=== PATIENT | male | born 1940 | race Caucasian/White ===

== ENCOUNTER 2024-01-03 06:56 | Day surgery (SDC) | payer MEDICARE, BC ==
[2024-01-02 11:35] LABS: BASOPHILS % (AUTO) 0.4 % (0-1); EOSINOPHILS # (AUTO) 0.1 X10'3 (0-0.9); EOSINOPHILS % (AUTO) 1.2 % (0-6); HEMATOCRIT 46.7 % (42.0-52.0); HEMOGLOBIN 15.8 g/dl (14.0-17.9); LYMPHOCYTES # (AUTO) 1.2 X10'3 (1.1-4.8); MEAN CORPUSCULAR HEMOGLOBIN 31.9 PG (27.0-31.0); MEAN CORPUSCULAR HGB CONC 33.8 g/dL (33.0-36.5); MEAN CORPUSCULAR VOLUME 94.5 FL (78-98); MEAN PLATELET VOLUME 7.6 FL (7.4-10.4); MONOCYTES # (AUTO) 1.2 X10'3 (0-0.9); NEUTROPHILS # (AUTO) 6.8 X10'3 (1.8-7.7); NEUTROPHILS % (AUTO) 72.4 % (42-75); PLATELET COUNT 257 X10'3 (140-440); RED BLOOD COUNT 4.94 X10'6 (4.70-6.10); RED CELL DISTRIBUTION WIDTH 13.4 % (11.5-14.5); WHITE BLOOD COUNT 9.4 X10'3 (4.5-11.0)
[2024-01-02 11:42] LABS: APTT 28 SECONDS (22-32); PROTHROMBIN TIME 10.4 SECONDS (9.0-12.0)
[2024-01-02 11:44] LABS: ALBUMIN 3.7 G/DL (3.4-5.0); ANION GAP 10 (8-16); BLOOD UREA NITROGEN 28 MG/DL (7-18); BUN/CREATININE RATIO 22.6 (10.0-20.0); CALCIUM 9.1 MG/DL (8.5-10.1); CHLORIDE 96 MMOL/L (99-107); CREATININE 1.24 MG/DL (0.60-1.10); GLUCOSE 90 MG/DL (70-104); POTASSIUM 4.3 MMOL/L (3.5-5.1); SODIUM 134 MMOL/L (135-145); TOTAL CARBON DIOXIDE 27.8 MMOL/L (24-32); eGFR 56 ML/MIN
[~2024-01-03] VITALS: Ht 190.5 cm; Wt 115.7 kg
[2024-01-03] VITALS (11 sets, daily range): BP systolic 100–140; BP diastolic 40–74; PULSE 48–71; RESP 12–18; TEMP 97.9; O2SAT 93–99
[~2024-01-03 06:56] MED LIST: ASPI81TA52 PO; ATOR10TA70 PO; CLOP75TA34 PO; CLOP75TA4 PO; FOLI1TAB27 PO; METH2.5T55 PO; METO-395 PO
[2024-01-03] MEDS ORDERED: CELE-127 PO (07:21)
[2024-01-03] MEDS ORDERED: OLME1TAB50 PO (07:21)
[2024-01-03] MEDS ORDERED: ROSU40TA22 PO (07:21)
[2024-01-03] MEDS ORDERED: LIDOcaine 1% (10mg/ml) 2ml vial ONE (08:18)
[2024-01-03] MEDS ORDERED: verapamil 2.5 mg/ml inj IV ONE (08:19)
[2024-01-03] MEDS ORDERED: fentaNYL/PF 50MCG/1 ML 2ML syringe ONE (08:19)
[2024-01-03] MEDS ORDERED: midazolam 1 mg/ML 2ml injection ONE (08:19)
[2024-01-03] MEDS ORDERED: iohexol 350 MG/ML 50ML vial IV ONE (08:20)
[2024-01-03] MEDS ORDERED: nitroGLYCERIN 500mcg/5mL D5W 5 ML IV ONE (08:20)
[2024-01-03] MEDS ORDERED: iohexol 350MG/ML 100ml bottle IV ONE (08:20)
[2024-01-03] MEDS ORDERED: heparin 1,000unit/ml 10ml vial 10 ML ONE (08:20)
[2024-01-03] MEDS: acetylcysteine 200 MG/ml 4ml vial PO PRN (08:24)
[2024-01-03] MEDS: LORazepam 0.5 MG tablet PO PRN (08:24)
[2024-01-03] MEDS: sodium bicarbonate 1meq/ml syr 150 ML in dextrose 5%-water 1,000 ML IV SCH (08:24)
[2024-01-03] MEDS: diphenhydrAMINE 25mg capsule PO PRN (08:24)
[2024-01-03] MEDS: normal saline 1,000 ML IV SCH (08:25)
[2024-01-03] MEDS ORDERED: LIDOcaine 1% 30ml preserv. free vial ONE (10:01)
[2024-01-03 13:30] LABS: ISTAT HGB ART 14.6 g/dl (14.0-17.9); ISTAT Hct ART 43 %PCV (42-52); ISTAT O2 SATURATION ARTERIAL 95 % (95-98); ISTAT SOURCE ART
[2024-01-03 17:07] LABS: ISTAT HGB MIX 14.6 g/dl (14.0-17.9); ISTAT Hct MIX 43 %PCV (42-52); ISTAT O2 SATURATION MIX VENOUS 70 % (60-80); ISTAT SOURCE VEN
== END 2024-01-03 15:10 | disposition home or self-care (01) ==
LOC: SSTAY O 06:56
PROVIDERS: ATTEND Internal Medicine Cardiovascular Disease
DX: I35.0 Nonrheumatic aortic (valve) stenosis (principal); I25.10 Atherosclerotic heart disease of native coronary artery without angina pectoris; I45.2 Bifascicular block; I10 Essential (primary) hypertension; E78.5 Hyperlipidemia, unspecified; G47.30 Sleep apnea, unspecified; E66.3 Overweight; M06.9 Rheumatoid arthritis, unspecified; Z79.82 Long term (current) use of aspirin; Z79.899 Other long term (current) drug therapy; Z98.890 Other specified postprocedural states; Z68.31 Body mass index [BMI] 31.0-31.9, adult; Z80.9 Family history of malignant neoplasm, unspecified
CPT/HCPCS: 36415; 80048; 82803; 85014; 85025; 85610; 85730; 93005; 93460; 99152; 99153; J1644; J2250; J3010; J3490; J7030; J7070; Q0163; Q9967; 76937; A6258; A6402; C1725; C1751; C1769; C1894

== ENCOUNTER 2024-06-03 09:35 | Outpatient (CLI) | payer MEDICARE, BC ==
[~2024-06-03 09:35] MED LIST changes: -ATOR10TA70 PO; +CELE-127 PO; -CLOP75TA34 PO; -FOLI1TAB27 PO; -METH2.5T55 PO; -METO-395 PO; +OLME1TAB50 PO; +ROSU40TA71 PO
[2024-06-03 10:06] LABS: BASOPHILS # (AUTO) 0.1 X10'3 (0-0.2); BASOPHILS % (AUTO) 0.4 % (0-1); EOSINOPHILS # (AUTO) 0.1 X10'3 (0-0.9); EOSINOPHILS % (AUTO) 0.8 % (0-6); HEMATOCRIT 42.7 % (42.0-52.0); HEMOGLOBIN 14.3 g/dl (14.0-17.9); LYMPHOCYTES # (AUTO) 0.7 X10'3 (1.1-4.8); MEAN CORPUSCULAR HEMOGLOBIN 31.4 PG (27.0-31.0); MEAN CORPUSCULAR HGB CONC 33.6 g/dL (33.0-36.5); MEAN CORPUSCULAR VOLUME 93.4 FL (78-98); MEAN PLATELET VOLUME 6.9 FL (7.4-10.4); MONOCYTES # (AUTO) 1.4 X10'3 (0-0.9); MONOCYTES % (AUTO) 12.4 % (2-12); NEUTROPHILS # (AUTO) 9.1 X10'3 (1.8-7.7); NEUTROPHILS % (AUTO) 80.4 % (42-75); PLATELET COUNT 249 X10'3 (140-440); RED BLOOD COUNT 4.57 X10'6 (4.70-6.10); RED CELL DISTRIBUTION WIDTH 13.7 % (11.5-14.5); WHITE BLOOD COUNT 11.3 X10'3 (4.5-11.0)
[2024-06-03 10:32] LABS: ALANINE AMINOTRANSFERASE 14 U/L (12-78); ALBUMIN 3.1 G/DL (3.4-5.0); ALBUMIN/GLOBULIN RATIO 0.9 (1.1-1.5); ALKALINE PHOSPHATASE 51 IU/L (46-116); ANION GAP 8 (8-16); ASPARTATE AMINO TRANSFERASE 18 U/L (10-37); BILIRUBIN,TOTAL 0.6 MG/DL (0.1-1.0); CALCIUM 9.2 MG/DL (8.5-10.1); CHLORIDE 91 MMOL/L (99-107); CREATININE 1.43 MG/DL (0.60-1.10); GLUCOSE 106 MG/DL (70-104); POTASSIUM 4.2 MMOL/L (3.5-5.1); SODIUM 127 MMOL/L (135-145); TOTAL CARBON DIOXIDE 27.6 MMOL/L (24-32); TOTAL PROTEIN 6.6 G/DL (6.4-8.2); eGFR 47 ML/MIN
[2024-06-03 10:35] LABS: BLOOD UREA NITROGEN 30 MG/DL (7-18)
[2024-06-03] MEDS ORDERED: IODIXANOL 320 MG/ML INFUS..BTL 100ML IV ONE (10:55)
[2024-06-03 11:13] LABS: APTT 29 SECONDS (22-32); PROTHROMBIN TIME 10.5 SECONDS (9.0-12.0)
== END 2024-06-03 23:59 | disposition home or self-care (01) ==
LOC: RAD 09:35
PROVIDERS: ATTEND Internal Medicine Cardiovascular Disease
DX: R91.8 Other nonspecific abnormal finding of lung field (principal); I35.0 Nonrheumatic aortic (valve) stenosis; R06.02 Shortness of breath; I65.29 Occlusion and stenosis of unspecified carotid artery; I70.0 Atherosclerosis of aorta; K57.30 Diverticulosis of large intestine without perforation or abscess without bleeding; K40.90 Unilateral inguinal hernia, without obstruction or gangrene, not specified as recurrent; M16.0 Bilateral primary osteoarthritis of hip; N28.1 Cyst of kidney, acquired
CPT/HCPCS: 36415; 71046; 71275; 74174; 75572; 80053; 85025; 85610; 85730; 93880; Q9967